=== PATIENT | female | born 1975 | race African-American/Black ===

== ENCOUNTER 2017-11-17 21:31 | Emergency (ER) | payer OTHER, MEDICAID ==
[~2017-11-17] VITALS: Ht 160 cm; Wt 102.3 kg
[2017-11-17] MEDS ORDERED: ALBU8HFA IH (21:40)
[2017-11-17] MEDS ORDERED: SYMB8060 IH (21:40)
[2017-11-17] MEDS ORDERED: IBUPROFEN 600 MG TABLET PO ONE (22:30)
[2017-11-17 22:35] VITALS: BP 150/109
== END 2017-11-17 22:57 | disposition home or self-care (01) ==
LOC: EMS 21:33
DX: S80.02XA Contusion of left knee, initial encounter (principal); H10.9 Unspecified conjunctivitis; J45.909 Unspecified asthma, uncomplicated; F17.210 Nicotine dependence, cigarettes, uncomplicated; Z90.710 Acquired absence of both cervix and uterus; Z79.899 Other long term (current) drug therapy; W01.0XXA Fall on same level from slipping, tripping and stumbling without subsequent striking against object, initial encounter; Y93.89 Activity, other specified; Y92.89 Other specified places as the place of occurrence of the external cause; Y99.8 Other external cause status
CPT/HCPCS: 29530; 99284

== ENCOUNTER 2018-01-02 15:58 | Emergency (ER) | payer MEDICAID, OTHER ==
[~2018-01-02] VITALS: Ht 157.5 cm; Wt 104.5 kg
[~2018-01-02 15:58] MED LIST: ALBU8HFA IH; SYMB8060 IH
[2018-01-02] MEDS: KETOROLAC TROMETHAMINE 60 MG/2 ML VIAL IM ONE (18:51)
[2018-01-02] MEDS: AMOX TR/POT CLAV 875 MG/125 MG TABLET PO ONE (18:51)
[2018-01-02 18:52] LABS: APPEARANCE,URINE CLEAR (CLEAR); BILIRUBIN,URINE NEGATIVE (NEGATIVE); GLUCOSE, URINE (UA) NEGATIVE (NEGATIVE); KETONES,URINE NEGATIVE (NEGATIVE); LEUKOCYTE ESTERASE ,URINE SMALL (NEGATIVE); NITRATE,URINE NEGATIVE (NEGATIVE); OCCULT BLOOD,URINE NEGATIVE (NEGATIVE); PH,URINE 6.5 (5.0-8.0); PROTEIN,URINE NEGATIVE (NEGATIVE); UROBILINOGEN,URINE 0.2 mg/dL (<=1.0)
[2018-01-02 18:57] LABS: BACTERIA,URINE Rare /HPF (None Seen); RBC,URINE 0-2 /HPF (0-2); SQUAMOUS EPITHELIAL CELL,UR Moderate /LPF (None Seen)
[2018-01-02 20:00] VITALS: BP 152/98
== END 2018-01-02 20:09 | disposition home or self-care (01) ==
LOC: EMS 15:58
DX: S02.5XXA Fracture of tooth (traumatic), initial encounter for closed fracture (principal); N76.0 Acute vaginitis; J45.909 Unspecified asthma, uncomplicated; F17.210 Nicotine dependence, cigarettes, uncomplicated; Z90.710 Acquired absence of both cervix and uterus; X58.XXXA Exposure to other specified factors, initial encounter; Y93.89 Activity, other specified; Y92.89 Other specified places as the place of occurrence of the external cause; Y99.8 Other external cause status
CPT/HCPCS: 81001; 87086; 96372; 99284; 99406; J1885

== ENCOUNTER 2018-04-05 13:39 | Emergency (ER) | payer MEDICAID, MEDICARE ==
[~2018-04-05] VITALS: Ht 160 cm; Wt 104.5 kg
[2018-04-05] MEDS ORDERED: IBUP-2354 PO (13:48)
[2018-04-05] MEDS ORDERED: DIPH50 PO (13:48)
[2018-04-05 16:28] VITALS: BP 150/98
== END 2018-04-05 16:32 | disposition home or self-care (01) ==
LOC: EMS 13:41
DX: J45.901 Unspecified asthma with (acute) exacerbation (principal); J06.9 Acute upper respiratory infection, unspecified; F17.210 Nicotine dependence, cigarettes, uncomplicated
CPT/HCPCS: 99406

== ENCOUNTER 2018-05-18 18:52 | Emergency (ER) | payer MEDICARE, OTHER ==
[~2018-05-18] VITALS: Ht 162.6 cm; Wt 118.2 kg
[~2018-05-18 18:52] MED LIST changes: +DIPH50 PO; +IBUP-2354 PO
[2018-05-18] MEDS ORDERED: SODIUM CHLORIDE 0.9% 1,000 ML IV ONE (18:56)
[2018-05-18] MEDS ORDERED: MethylPREDNISolone SOD SUCC 125 MG/2 ML VIAL IVP ONE (19:00)
[2018-05-18] MEDS ORDERED: DiphenhydrAMINE HCL 50 MG/ML VIAL IVP ONE (19:00)
[2018-05-18] MEDS ORDERED: FAMOTIDINE 10 MG/ML 2 ML VIAL IVP ONE (19:00)
[2018-05-18] MEDS ORDERED: ACETAMINOPHEN 500 MG TABLET PO ONE (19:30)
[2018-05-18 21:41] VITALS: BP 150/94
== END 2018-05-18 21:57 | disposition home or self-care (01) ==
LOC: EMS 18:52
DX: T78.40XA Allergy, unspecified, initial encounter (principal); J45.909 Unspecified asthma, uncomplicated; F17.210 Nicotine dependence, cigarettes, uncomplicated; X58.XXXA Exposure to other specified factors, initial encounter
CPT/HCPCS: 96374; 96375; 99291; 99406; J1200; J2930; J3490; J7030